=== PATIENT | female | born 1995 | race Caucasian/White ===

== ENCOUNTER 2017-10-30 19:50 | Emergency (ER) | payer OTHER ==
[2017-10-30 20:27] VITALS: TEMP 98; BMI 20.1
--- NOTE | 2017-10-30 21:50 | PDOC ---
History of Present Illness - General Chief Complaint: Pain Stated Complaint: REDNESS TO AFFECTED AREA Time Seen by Provider: 10/30/17 21:09 - History of Present Illness Initial Comments: 10/30/17 21:48 22 yo F with h/o asthma, and recent diagnosis of BL LE cellulitis ( 10-26-17) who p/w increased redness and warmth of skin. Patient reports increased redness and warmth of anterior left brunner, outside margins of previously outlined cellulites site demarcated with bold body marker. Patient with no other complaints. Initial presentation on 10-24-17 following multiple but bites, that later became infected requiring oral antibiotics ( Keflex QID, and Bactrim BID) . Pain controlled with Tylenol and Motrin. Denies F/C, night sweats, cough, N/V, CP, SOB, abdominal pain, diarrhea, constipation, urinary complaints, weakness, lightheadedness, sensory changes. PMHx: as noted above ROS: as noted above Allergies: NKDA Past History - Past Medical History Allergies/Adverse Reactions: Allergies Allergy/AdvReac Type Severity Reaction Status Date / Time No Known Allergies Allergy Verified 10/30/17 20:24 Home Medications: Ambulatory Orders Cephalexin [Keflex] 500 mg PO QID #40 capsule 10/26/17 Sulfamethoxazole/Trimethoprim [Bactrim Ds -] 1 tab PO BID #14 tablet 10/26/17 Asthma: Yes COPD: No - Suicide/Smoking/Psychosocial Hx Smoking History: Never smoked Have you smoked in the past 12 months: No Information on smoking cessation initiated: No Hx Alcohol Use: No Drug/Substance Use Hx: No Substance Use Type: None Review of Systems - Review of Systems Comments:: 10/30/17 21:48 GENERAL/CONSTITUTIONAL: No fever or chills. No weakness. HEAD, EYES, EARS, NOSE AND THROAT: No change in vision. No ear pain or discharge. No sore throat. CARDIOVASCULAR: No chest pain or shortness of breath RESPIRATORY: No cough, wheezing, or hemoptysis. GASTROINTESTINAL: No nausea, vomiting, diarrhea or constipation. GENITOURINARY: No dysuria, frequency, or change in urination. MUSCULOSKELETAL: No joint or muscle swelling or pain. No neck or back pain. SKIN: BL LE redness, and warmth. NEUROLOGIC: No headache, vertigo, loss of consciousness, or change in strength/ sensation. ENDOCRINE: No increased thirst. No abnormal weight change HEMATOLOGIC/LYMPHATIC: No anemia, easy bleeding, or history of blood clots. ALLERGIC/IMMUNOLOGIC: No hives or skin allergy. *Physical Exam - Vital Signs Last Vital Signs Temp Pulse Resp BP Pulse Ox 98.0 F 71 18 107/64 98 10/30/17 20:24 10/30/17 20:24 10/30/17 20:24 10/30/17 20:24 10/30/17 20:24 - Physical Exam Comments: 10/30/17 21:49 GENERAL: Awake, alert, and fully oriented, in no acute distress HEAD: No signs of trauma, normocephalic, atraumatic EYES: PERRLA, EOMI, sclera anicteric, conjunctiva clear ENT: Auricles normal inspection, hearing grossly normal, nares patent, oropharynx clear without exudates. Moist mucosa NECK: Normal ROM, supple, no lymphadenopathy, JVD, or masses LUNGS: No distress, speaks full sentences, clear to auscultation bilaterally HEART: Regular rate and rhythm, normal S1 and S2, no murmurs, rubs or gallops, peripheral pulses normal and equal bilaterally. EXTREMITIES : Normal inspection, Normal range of motion, no edema. No clubbing or cyanosis. SKIN: BL LE erythema, redness, and ttp, imrpoved from previous ED visit beyond previous borders outlined by marker. Left sided ant tibial erythema measuring 4 x 3 cm extending outside margins. Absent streaking, lymphadenopathy, fluctuance , induration or firmness. Medical Decision Making - Medical Decision Making 10/30/17 22:11 22 yo F with h/o asthma, and recent diagnosis of BL LE cellulitis ( 10-26-17) who p/w increased redness and warmth of anterior L sided brunner. VSS, AF, A&OX3. 0 /4 SIRS criteria. Absent evidence of deep space infection, or end organ dysfunction. Low suspicion of necrotizing fascitis, septic arthritis, or abscess formation. ED Course: 10/30/17 23:50 Dalbavancin 1500 mg Patient stable for outpatient f/u and advised to return to ED Wednesday ( 11/01/17 ) for cellulitis check. Stable for d/c with return precautions. *DC/Admit/Observation/Transfer Diagnosis at time of Disposition: Cellulitis Qualifiers: Site of cellulitis: extremity Site of cellulitis of extremity: lower extremity Laterality: left Qualified Code(s): L03.116 - Cellulitis of left lower limb - Discharge Dispostion Disposition: HOME Condition at time of disposition: Stable Decision to Admit order: No - Referrals - Patient Instructions Printed Discharge Instructions: DI for Cellulitis -- Adult Additional Instructions: Please return to the emergency department with any new or worsening symptoms or concerns. Please follow up in the emergency department for cellulitis check (). Please discontinue Keflex and Bactrim. - Post Discharge Activity - Attestations Physician Attestion: 10/30/17 23:58 I attest to the information provided in this note.
[2017-10-30] MEDS ORDERED: DALBAVANCIN HCL 1,500 MG in DEXTROSE 5%-WATER - 500 ML IVPB ONE (22:49)
--- NOTE | 2017-10-30 22:49 | PDOC ---
Attending Attestation - Resident Resident Name: Franklin Talbot - ED Attending Attestation I have performed the following: I have examined & evaluated the patient, The case was reviewed & discussed with the resident, I agree w/resident's findings & plan - HPI HPI: 10/30/17 22:45 Healthy 22-year-old female presents for reevaluation of infected insect bites. Patient was started on Bactrim and Keflex on 10/26 after sustaining the bug bites about 2 weeks ago, redness and swelling is improving except for 2 lesions on her left lower extremity. No drainage, no fevers or chills, no joint pathology. - Physicial Exam PE: 10/30/17 22:46 Vital signs normal well appearing seated in stretcher Skin exam: Left lower extremity: There is a prepatellar about 3 or 4 cm cellulitis with central area of induration and tenderness but no fluctuance or discharge, the cellulitic edges are within the previously demarcated foundry. There is a second cellulitic area in the proximal/medial left brunner, within involved 1 cm area of induration but again no fluctuance or discharge. The remaining areas on both feet and on the right brunner have resolving cellulitis based on the previously demarcated regions. Neurovascularly intact throughout - Medical Decision Making 10/30/17 22:48 Patient seen and evaluated with the resident. I agree with the overall evaluation, assessment, and management with the following summary of visit: 22-year-old healthy female with infected insect bites, only gradual improvement with Bactrim and Keflex. There are 2 areas of induration without evidence of abscess, she is currently taking single dose Bactrim twice daily. Will give infusion of Dalvance given questionable improvement of these two lesions on oral abx will need wound check in 48h to r/o progression to abscess pt agrees with plan
[2017-10-31 01:35] VITALS: BP 118/72; PULSE 74
== END 2017-10-31 01:31 | disposition home or self-care (01) ==
LOC: JER 19:50
DX: L03.116 Cellulitis of left lower limb (principal); J45.909 Unspecified asthma, uncomplicated
CPT/HCPCS: 96365; 99283-25; J0875